=== PATIENT | female | born 1965 | race Caucasian/White ===

== ENCOUNTER → 2016-08-01 | Outpatient (CLI) | payer OTHER ==
[~2016-08-01] MED LIST: ABILIFY2 MG PO; ACIDOPHILUS1 TAB PO; ASPIRIN PO; ASPIRIN81 MG PO; ATARAX PO; CYMBALTA PO; DARVOCET-N 1001 TA2 PO; LAMICTAL PO; LIPITOR20 MG DOB; LOESTRIN FE 1/21 TAB PO; ZOCOR PO; ZOLOFT PO
--- NOTE | ~2016-08-01 | MY11 ---
[facility] A Service [facility] RADIOLOGY TEXT RESULTS PATIENT: JOANNE MICHELLE LOCATION: [facility] : 69 UNIT #: [id number] AGE: [address]: Avis Lee MD SEX: F ORDER DR: [id number] [place] [id number] MR#: [id number] Acc #: [id number] NAME: JOANNE MICHELLE : 1965 SEX: F STUDY DATE/TIME: 08/01/2016 15:52 UNIT: [facility] ROOM: STUDY DESCRIPTION: MY Mammogram Screening Dig Yaya Attending Physician: Avis Lee M.D. Referring Physician: Avis Lee M.D. Ordering Physician: Anne-Marie Not Listed Primary Care Physician: Avis Lee M.D. MEDICAL IMAGING REPORT This report is preliminary unless electronic signature is present. EXAM Digital screening mammogram, 08/01/2016. HISTORY 51-year-old woman; positive family history, mother age 52. Annual screening. COMPARISON 01/17/2011, 07/16/2012, 02/09/2014. FINDINGS Digital imaging of each breast was completed utilizing a two-view examination of each breast in craniocaudal and mediolateral-oblique projections. Review and interpretation of digital mammograms include a second review in conjunction with FDA-approved CAD device. There is a normal parenchymal presentation bilaterally consistent with the patient's age. There are no breast masses imaged and no parenchymal asymmetry is visualized. There are no suspicious microcalcifications and I see no focal architectural disturbance. IMPRESSION Negative screening digital mammogram. One-year followup recommended. Patients over the age of 40 are entered into a reminder system with target due date for the next mammogram. A result letter will also be sent to the patient. BIRADS: 1 Negative [facility] A Service [facility] RADIOLOGY TEXT RESULTS PATIENT: JOANNE MICHELLE LOCATION: [facility] : [birth year] UNIT #: [id number] AGE: [address]: Avis Lee MD SEX: F ORDER DR: Dictated by... Eric Evangelista M.D. THIS IS AN ELECTRONICALLY VERIFIED REPORT Eric Evangelista M.D. at 08/07/2016 12:03 PM Bhupendra TD: 08/01/2016 18:39 JOB #: [id number] MEDICAL IMAGING REPORT Page 1 of 1
== END | disposition home or self-care (01) ==
LOC: SMAM 15:31
DX: Z12.31 Encounter for screening mammogram for malignant neoplasm of breast (principal); Z80.3 Family history of malignant neoplasm of breast
CPT/HCPCS: G0202